=== PATIENT | female | born 1965 | race African-American/Black ===

== ENCOUNTER 2020-11-23 10:06 | Day surgery (SDC) | payer OTHER ==
[2020-11-23] MEDS ORDERED: LIDOCAINE HCL 2% 100 MG/5 ML IJ ONE (10:07)
[2020-11-23] MEDS ORDERED: DIPRIVAN 200 MG/20 ML IV ONE (12:43)
[2020-11-23] MEDS ORDERED: Lactated Ringers 1,000 ML IV ONE (16:26)
--- NOTE | 2020-11-23 17:49 | XRAY ---
13 seconds fluoroscopy time in surgery for bilateral L4-S1 MBB.
== END 2020-11-23 13:13 | disposition home or self-care (01) ==
LOC: SDC-PAIN 10:06
PROVIDERS: ATTEND Psychiatry & Neurology Pain Medicine
DX: M47.816 Spondylosis without myelopathy or radiculopathy, lumbar region (principal); F41.8 Other specified anxiety disorders; Z79.899 Other long term (current) drug therapy
CPT/HCPCS: 64493; 64494; 72020; 77002; J2704

== ENCOUNTER 2021-01-04 14:38 | Day surgery (SDC) | payer OTHER ==
[2021-01-04] MEDS ORDERED: BUPIVACAINE 0.5% VIAL IJ ONE (14:39)
[2021-01-04] MEDS ORDERED: DIPRIVAN 200 MG/20 ML IV ONE (15:49)
[2021-01-04] MEDS ORDERED: Lactated Ringers 1,000 ML IV ONE (16:31)
--- NOTE | 2021-01-05 11:44 | XRAY ---
11 seconds fluoroscopy time in surgery for bilateral L4-S1 MBB.
== END 2021-01-04 16:17 | disposition home or self-care (01) ==
LOC: SDC-PAIN 14:38
PROVIDERS: ATTEND Psychiatry & Neurology Pain Medicine
DX: M47.816 Spondylosis without myelopathy or radiculopathy, lumbar region (principal); F41.9 Anxiety disorder, unspecified; F32.9 Major depressive disorder, single episode, unspecified; Z79.899 Other long term (current) drug therapy
CPT/HCPCS: 64493; 64494; 72020; 77002; J2704

== ENCOUNTER 2021-02-15 13:02 | Day surgery (SDC) | payer OTHER ==
[2021-02-15] MEDS ORDERED: BUPIVACAINE 0.5% VIAL IJ ONE (13:03)
[2021-02-15] MEDS ORDERED: Depo-Medrol 40 MG/ML IM ONE (13:03)
[2021-02-15] MEDS ORDERED: Xylocaine 1% Vial 30 ML PF IJ ONE (13:03)
[2021-02-15] MEDS ORDERED: DIPRIVAN 200 MG/20 ML IV ONE (14:12)
[2021-02-15] MEDS ORDERED: Lactated Ringers 1,000 ML IV ONE (15:58)
--- NOTE | 2021-02-16 11:54 | XRAY ---
40 seconds fluoroscopy time in surgery for left L4-S1 RFA.
--- NOTE | 2021-02-19 00:33 | XRAY ---
Indication: Left L4-S1 RFA. Intraoperative fluoroscopy was provided for 40 seconds. 3 digital spot images submitted for interpretation demonstrate posterior needle tips projected over the expected left L4-S1 nerve roots. Correlate with intraoperative findings/report.
== END 2021-02-15 14:46 | disposition home or self-care (01) ==
LOC: SDC-PAIN 13:02
PROVIDERS: ATTEND Psychiatry & Neurology Pain Medicine
DX: M47.816 Spondylosis without myelopathy or radiculopathy, lumbar region (principal); Z79.899 Other long term (current) drug therapy
CPT/HCPCS: 64635; 64636; 72100; 77002; J1030; J2001; J2704

== ENCOUNTER 2021-02-22 15:23 | Day surgery (SDC) | payer OTHER ==
[2021-02-22] MEDS ORDERED: Depo-Medrol 40 MG/ML IM ONE (15:24)
[2021-02-22] MEDS ORDERED: BUPIVACAINE 0.5% VIAL IJ ONE (15:24)
[2021-02-22] MEDS ORDERED: Xylocaine 1% Vial 30 ML PF IJ ONE (15:24)
[2021-02-22] MEDS ORDERED: Lactated Ringers 1,000 ML IV ONE (16:38)
[2021-02-22] MEDS ORDERED: DIPRIVAN 200 MG/20 ML IV ONE ×2 (16:58→17:09)
--- NOTE | 2021-02-23 08:46 | XRAY ---
Indication: Right L4-S1 RFA. Intraoperative fluoroscopy provided for 56 seconds. Single digital spot image submitted for interpretation demonstrates posterior needle tips projecting over the presumed right L4-S1 S1 nerve roots. Correlate with intraoperative findings/report.
--- NOTE | 2021-02-23 08:47 | XRAY ---
56 seconds fluoroscopy time in surgery for right L4-S1 RFA, however procedure was aborted.
== END 2021-02-22 17:35 | disposition home or self-care (01) ==
LOC: SDC-PAIN 15:23
PROVIDERS: ATTEND Psychiatry & Neurology Pain Medicine
DX: M47.816 Spondylosis without myelopathy or radiculopathy, lumbar region (principal); Z79.899 Other long term (current) drug therapy
CPT/HCPCS: 64635; 64636; 72020; 77002; J1030; J2001; J2704

== ENCOUNTER 2021-03-22 14:57 | Day surgery (SDC) | payer OTHER ==
[2021-03-22] MEDS ORDERED: BUPIVACAINE 0.5% VIAL IJ ONE (14:58)
[2021-03-22] MEDS ORDERED: Xylocaine 1% Vial 30 ML PF IJ ONE (14:58)
[2021-03-22] MEDS ORDERED: Depo-Medrol 40 MG/ML IM ONE (14:58)
[2021-03-22] MEDS ORDERED: DIPRIVAN 200 MG/20 ML IV ONE (15:22)
[2021-03-22] MEDS ORDERED: Versed 2 MG/2 ML Injection ONE (15:34)
--- NOTE | 2021-03-22 16:17 | XRAY ---
Indication: Right L4-S1 RFA. Intraoperative fluoroscopy provided for 26 seconds. 3 digital spot images submitted for interpretation demonstrates posterior needle tips projecting over the expected right L4-S1 nerve roots. Correlate with intraoperative findings/report.
--- NOTE | 2021-03-22 16:38 | XRAY ---
26 seconds of fluoroscopy was used in surgery for a right L4-L5, L5-S1 RFA.
[2021-03-22] MEDS ORDERED: Lactated Ringers 1,000 ML IV ONE (16:44)
== END 2021-03-22 16:15 | disposition home or self-care (01) ==
LOC: SDC-PAIN 14:57
PROVIDERS: ATTEND Psychiatry & Neurology Pain Medicine
DX: M47.816 Spondylosis without myelopathy or radiculopathy, lumbar region (principal); Z79.899 Other long term (current) drug therapy
CPT/HCPCS: 64635; 64636; 72100; 77002; J1030; J2001; J2250; J2704